=== PATIENT | female | born 1980 | race African-American/Black ===

== ENCOUNTER 2016-07-04 07:52 | Emergency (ER) | payer MEDICAID ==
[2016-07-04 07:58] VITALS: BP 120/79
[2016-07-04] MEDS ORDERED: LORATADINE 10 MG TABLET PO ONE (08:46)
[2016-07-04] MEDS ORDERED: IBUPROFEN 600 MG TABLET PO ONE (08:46)
[2016-07-04] MEDS ORDERED: PSEUDOEPHEDRINE HCL 30 MG TABLET PO ONE (08:46)
[2016-07-04] MEDS ORDERED: GUAIFENESIN 600 MG TABLET.SA PO ONE (08:46)
--- NOTE | 2016-07-04 08:46 | ER Document Report ---
ED ENT - General Chief Complaint: Sinus Congestion Stated Complaint: BODY PAIN Time seen by provider: 08:46 Mode of Arrival: Ambulatory Information source: Patient Notes: 36-year-old female presents to ED for congestion sneezing sinus pressure since yesterday with a little bit of a sore throat bodyaches and cough denies any fever. Beginning clear complete sentences no distress noted. TRAVEL OUTSIDE OF THE [place] IN LAST 30 DAYS: No - HPI Patient complains to provider of: Nose problem, Throat problem Onset: Yesterday Onset/Duration: Sudden Quality of pain: Achy Severity: Moderate Pain Level: 3 Location of pain: Nose, Sinus, Throat Associated symptoms: Cough, Runny nose, Sinus pain, Sinus drainage, Sore throat. 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 Lives with: Alone - Alone with children Family History: Arthritis, CAD, CVA, DM, Hyperlipidemia, Hypertension Patient has suicidal ideation: No Patient has homicidal ideation: No - Past Medical History Cardiac Medical History: Reports: None Pulmonary Medical History: Reports: Hx Asthma, Hx Pneumonia EENT Medical History: Reports: None Neurological Medical History: Reports: None Endocrine Medical History: Reports: None Renal/ Medical History: Reports: None Malignancy Medical History: Reports: None GI Medical History: Reports: None Musculoskeltal Medical History: Reports None Skin Medical History: Reports Hx Cellulitis Psychiatric Medical History: Reports: Hx Anxiety, Hx Depression Traumatic Medical History: Reports: None Infectious Medical History: Reports: None Past Surgical History: Reports: Hx Adenoidectomy, Hx Section - x4, Hx CholecystectomyComment Only: Hx Tonsillectomy - adnoids - Immunizations Hx Diphtheria, Pertussis, Tetanus Vaccination: Yes Review of Systems - Review of Systems Constitutional: Recent illness EENT: Nose discharge, Sinus discharge, Throat pain Cardiovascular: No symptoms reported Respiratory: Cough Gastrointestinal: No symptoms reported Genitourinary: No symptoms reported Female Genitourinary: No symptoms reported Musculoskeletal: No symptoms reported Skin: No symptoms reported Hematologic/Lymphatic: No symptoms reported Neurological/Psychological: No symptoms reported -: Yes All other systems reviewed and negative Physical Exam - Vital signs Vitals: Temp Pulse Resp BP Pulse Ox 98.2 F 97 20 120/79 98 07/04/16 07:57 07/04/16 07:57 07/04/16 07:57 07/04/16 07:57 07/04/16 07:57 Interpretation: Normal - General General appearance: Appears well, Alert - HEENT Head: Normocephalic, Atraumatic Eyes: Normal Pupils: PERRL Ears: Normal External canal: Normal Tympanic membrane: Normal Sinus: Normal Nasal: Purulent discharge, Swelling Mouth/Lips: Normal Mucous membranes: Normal Pharynx: Post nasal drainage. No: Erythema, Exudate, Peritonsillar abscess Neck: Normal - Respiratory Respiratory status: No respiratory distress Chest status: Nontender Breath sounds: Normal, Nonproductive cough Chest palpation: Normal - Cardiovascular Rhythm: Regular Heart sounds: Normal auscultation Murmur: No - Abdominal Inspection: Normal Distension: No distension Bowel sounds: Normal Tenderness: Nontender Organomegaly: No organomegaly - Back Back: Normal, Nontender - Extremities General upper extremity: Normal inspection, Nontender, Normal color, Normal ROM , Normal temperature General lower extremity: Normal inspection, Nontender, Normal color, Normal ROM , Normal temperature, Normal weight bearing. No: Everett's sign - Neurological Neuro grossly intact: Yes Cognition: Normal Orientation: AAOx4 [place] Coma Scale Eye Opening: Spontaneous Jennifer Coma Scale Verbal: Oriented [place] Coma Scale Motor: Obeys Commands Chester Coma Scale Total: 15 Speech: Normal Motor strength normal: LUE, RUE, LLE, RLE Sensory: Normal - Psychological Associated symptoms: Normal affect, Normal mood - Skin Skin Temperature: Warm Skin Moisture: Dry Skin Color: Normal Course - Re-evaluation Re-evalutation: 07/04/16 11:06 Assessment consistent with upper respiratory infection and patient requested a test for influenza. - Vital Signs Vital signs: Temp Pulse Resp BP Pulse Ox 98.2 F 97 20 120/79 98 07/04/16 07:57 07/04/16 07:57 07/04/16 07:57 07/04/16 07:57 07/04/16 07:57 Discharge - Discharge Clinical Impression: URI (upper respiratory infection) Qualifiers: URI type: unspecified URI Qualified Code(s): J06.9 - Acute upper respiratory infection, unspecified Condition: Stable Disposition: HOME, SELF-CARE Instructions: Family Physicians / Practices Additional Instructions: UPPER RESPIRATORY ILLNESS: You have a viral infection of the respiratory passages -- a "cold." This common infection causes nasal congestion, drainage, and often sore throat and cough. It is highly contagious. The disease usually lasts about 10 to 14 days. There is no "cure" for the viral infection -- it must run its course. If there is a complication, such as bacterial infection in the nose, sinuses, middle ear, or bronchial tubes, antibiotics may be required. The antibiotics won't affect the virus. Drink plenty of fluids. A humidifier may help. An expectorant medication or decongestant may make you more comfortable. Use acetaminophen or ibuprofen for fever or aches. See the doctor if fever persists over two days, if there is any significant worsening of your symptoms, or if you simply fail to improve as expected. DECONGESTANT MEDICATION: A decongestant medicine has been suggested. Often this medicine is combined in the same tablet with an antihistamine or expectorant. This type of medicine is helpful in treating a bad cold or sinus condition, as well as in treatment of the nasal congestion of hay fever. It is not of much benefit for lung infections. Decongestant medicines are related to stimulants. They can cause an increase in blood pressure and heart rate. Persons with heart disease and high blood pressure should not take decongestants without discussing this with the physician. If you develop palpitations, chest pain, headache, or tremors, stop the medicine and consult your physician. COUGH-SUPPRESSANT & EXPECTORANT MEDICATION: You are to use a cough medication as needed for relief of symptoms. This medicine is a combination of an expectorant (to make the mucous thinner and more easily "coughed up") and a cough suppressant (to reduce the frequency of coughing). The cough-suppressant medicine is related to narcotics. You may experience mild nausea and sleepiness. Some patients who are very sensitive to narcotics may have stomach pain from this medicine. Taking the medicine with food reduces these side effects. Do not drive or work with machinery until you know how this medicine affects you. The expectorant should have no side effects. Iodine-containing expectorants (such as organidin) should not be taken by persons with active thyroid disease unless approved by your doctor. Call the doctor if you develop shortness of breath, hives, rash, itching, lightheadedness, or severe nausea and vomiting. USE OF ACETAMINOPHEN (Tylenol): Acetaminophen may be taken for pain relief or fever control. It's much safer than aspirin, offering a wider range of "safe" dosages. It is safe during . Some brand names are Tylenol, Panadol, Datril, Anacin 3, Tempra, and Liquiprin. Acetaminophen can be repeated every four hours. The following are maximum recommended dosages: >89 pounds or adults 650 mg to 900 mg Acetaminophen can be repeated every four hours. Maximum dose not to exceed 4000 mg a day. SMOKING: If you smoke, you should stop smoking. The tar and chemicals in cigarette smoke are harmful. Smoking has been shown to cause: emphysema chronic bronchitis lung cancer mouth and throat cancer stomach and pancreas cancer premature aging defects In addition, smoking increases ear and lung infections in children of smokers. FOLLOW-UP CARE: If you have been referred to a physician for follow-up care, call the physician s office for an appointment as you were instructed or within the next two days. If you experience worsening or a significant change in your symptoms, notify the physician immediately or return to the Emergency Department at any time for re-evaluation. Forms: Return to Work, Follow-Up Laboratory Testing
== END 2016-07-04 09:13 | disposition home or self-care (01) ==
LOC: ER 07:52
DX: J06.9 Acute upper respiratory infection, unspecified (principal); M79.1 Myalgia; Z90.49 Acquired absence of other specified parts of digestive tract
CPT/HCPCS: 99283; J3490 ×3

== ENCOUNTER 2017-02-04 06:56 | Emergency (ER) | payer MEDICAID ==
[2017-02-04 08:15] LABS: APPEARANCE,URINE CLEAR; BILIRUBIN,URINE NEGATIVE (NEGATIVE); GLUCOSE, URINE NEGATIVE (NEGATIVE); KETONES,URINE NEGATIVE (NEGATIVE); LEUKOCYTE ESTERASE,URINE NEGATIVE (NEGATIVE); NITRITE,URINE NEGATIVE (NEGATIVE); PROTEIN,URINE NEGATIVE (NEGATIVE); URINE SPECIFIC GRAVITY 1.006; UROBILINOGEN,URINE NEGATIVE mg/dL (<2.0)
--- NOTE | 2017-02-04 08:21 | ER Document Report ---
ED ENT - General Chief Complaint: Sore Throat Stated Complaint: SORE THROAT, Time Seen by Provider: 02/04/17 07:16 Mode of Arrival: Ambulatory Information source: Patient Notes: Patient is a 36-year-old female who presents to the ER today for 1 day of sore throat and 1 day of dysuria with lower abdominal cramping. She denies any fever , chills, body aches, low back pain, vomiting or diarrhea. She states that she does have a new sexual partner as of 2 weeks ago but he has not told her that he has any STDs, however she is concerned about this today. She denies any abnormal vaginal discharge. She denies . TRAVEL OUTSIDE OF THE [place] IN LAST 30 DAYS: No - Related Data Allergies/Adverse Reactions: No Known Allergies Allergy (Verified 07/04/16 08:03) Past Medical History - General Information source: Patient - Social History Smoking Status: Never Smoker Chew tobacco use (# tins/day): No Frequency of alcohol use: None Drug Abuse: None Family History: Arthritis, CAD, CVA, DM, Hyperlipidemia, Hypertension Patient has suicidal ideation: No Patient has homicidal ideation: No Pulmonary Medical History: Reports: Hx Asthma, Hx Pneumonia Renal/ Medical History: Denies: Hx Peritoneal Dialysis Skin Medical History: Reports Hx Cellulitis Psychiatric Medical History: Reports: Hx Anxiety, Hx Depression Past Surgical History: Reports: Hx Adenoidectomy, Hx Section - x4, Hx CholecystectomyComment Only: Hx Tonsillectomy - adnoids - Immunizations Hx Diphtheria, Pertussis, Tetanus Vaccination: Yes Review of Systems - Review of Systems Constitutional: No symptoms reported EENT: See HPI Cardiovascular: No symptoms reported Respiratory: No symptoms reported Gastrointestinal: No symptoms reported Genitourinary: See HPI Female Genitourinary: No symptoms reported Musculoskeletal: No symptoms reported Skin: No symptoms reported Hematologic/Lymphatic: No symptoms reported Neurological/Psychological: No symptoms reported Physical Exam - Vital signs Vitals: Temp Pulse Resp BP Pulse Ox 98.1 F 76 18 120/82 98 02/04/17 07:03 02/04/17 07:03 02/04/17 07:03 02/04/17 07:03 02/04/17 07:03 - Notes Notes: PHYSICAL EXAMINATION: GENERAL: Well-appearing and in no acute distress. HEAD: Atraumatic, normocephalic. EYES: Pupils equal round and reactive to light, extraocular movements intact, sclera anicteric, conjunctiva are normal. ENT: ear canals without erythema or foreign body, TMs pearly ghosh with good bony landmarks, nares patent, oropharynx mildly erythematous without enlarged tonsils and without exudates. Moist mucous membranes. NECK: Normal range of motion, supple without lymphadenopathy LUNGS: CTAB and equal. No wheezes rales or rhonchi. HEART: Regular rate and rhythm without murmurs ABDOMEN: Soft, mild suprapubic tenderness. No guarding, no rebound BACK: no vertebral tenderness, normal ROM GI/: no CVA tenderness EXTREMITIES: Normal range of motion, no pitting edema. No cyanosis. NEUROLOGICAL: Cranial nerves grossly intact. Normal sensory/motor exams. PSYCH: Normal mood, normal affect. SKIN: Warm, Dry, normal turgor, no rashes or lesions noted Course - Re-evaluation Re-evalutation: 02/04/17 08:25 I offered patient a pelvic exam but she opted for the chlamydia and gonorrhea that can be tested in the urine. Urinalysis, chlamydia, gonorrhea urine all pending at this time the patient would like to go home because she has to "be at the [employer] in half an hour." Strep was negative today and I did advise her of this. - Vital Signs Vital signs: Temp Pulse Resp BP Pulse Ox 98.1 F 76 18 120/82 98 02/04/17 07:03 02/04/17 07:03 02/04/17 07:03 02/04/17 07:03 02/04/17 07:03 Discharge - Discharge Clinical Impression: Sore throat, Dysuria Condition: Stable Disposition: HOME, SELF-CARE Additional Instructions: Return immediately for any new or worsening symptoms. Follow up with primary care provider, call tomorrow to make followup appointment. Forms: Return to Work Referrals: COURTNEY ANDRADE, [Primary Care Provider] - Follow up as needed
[2017-02-04 08:24] VITALS: BP 123/75
[2017-02-04 10:03] LABS: CHLAM PCR NOT DETECTED (NOT DETECT)
== END 2017-02-04 08:23 | disposition home or self-care (01) ==
LOC: ER 06:56
DX: J02.9 Acute pharyngitis, unspecified (principal); R30.0 Dysuria; R10.30 Lower abdominal pain, unspecified; J45.909 Unspecified asthma, uncomplicated
CPT/HCPCS: 81001; 81025; 87070; 87491; 87591; 87880; 99283

== ENCOUNTER 2017-05-22 07:15 | Emergency (ER) | payer MEDICAID ==
[2017-05-22 08:13] VITALS: BP 101/65
--- NOTE | 2017-05-22 08:16 | ER Document Report ---
HPI - HPI Patient complains to provider of: blister and red rash abdomen Onset: This morning Pain Level: 4 Context: 37 yo female woke up with blister and erythema on left abdomen this morning. Thinks it is cellulitis again. No fever, no hx MRSA. I asked if she used a heating pad since it looked like the pattern you get from heating pad, ? burn. Associated Symptoms: None Exacerbated by: Denies Relieved by: Denies Similar symptoms previously: Yes Recently seen / treated by doctor: No Notes: LMP 12-16-17 - ROS ROS below otherwise negative: Yes Systems Reviewed and Negative: Yes All other systems reviewed and negative - REPRODUCTIVE Reproductive: DENIES: : Past Medical History - General Information source: Patient - Social History Smoking Status: Never Smoker Frequency of alcohol use: None Drug Abuse: None Lives with: Family Family History: Arthritis, CAD, CVA, DM, Hyperlipidemia, Hypertension Pulmonary Medical History: Reports: Hx Asthma, Hx Pneumonia Renal/ Medical History: Denies: Hx Peritoneal Dialysis Skin Medical History: Reports Hx Cellulitis Psychiatric Medical History: Reports: Hx Anxiety, Hx Depression Past Surgical History: Reports: Hx Adenoidectomy, Hx Section - x4, Hx CholecystectomyComment Only: Hx Tonsillectomy - adnoids - Immunizations Hx Diphtheria, Pertussis, Tetanus Vaccination: Yes Vertical Provider Document - CONSTITUTIONAL Agree With Documented VS: Yes Exam Limitations: No Limitations General Appearance: No Apparent Distress - INFECTION CONTROL TRAVEL OUTSIDE OF THE [place] IN LAST 30 DAYS: No - HEENT HEENT: Normocephalic - NECK Neck: Supple - RESPIRATORY Respiratory: Breath Sounds Normal, No Respiratory Distress - CARDIOVASCULAR Cardiovascular: Regular Rate, Regular Rhythm - GI/ABDOMEN Gastrointestinal: Abdomen Soft, Abdomen Non-Tender Notes: 2 approx. 8 mm vesicles with nikolai red rash regular pattern surroundingleft just below umbilicus - MUSCULOSKELETAL/EXTREMETIES Musculoskeletal/Extremeties: SANDRA, MAL - NEURO Level of Consciousness: Awake, Alert, Appropriate - DERM Integumentary: Rash - see above Discharge - Discharge Clinical Impression: VESICLES ABDOMEN Condition: Good Disposition: HOME, SELF-CARE Instructions: Antibiotic Ointment Protection ([facility]), Cephalexin ([facility]) Additional Instructions: bacitracin and keep covered keflex wound and viral culture are pending to er if worse Prescriptions: Cephalexin Monohydrate [Keflex 500 mg Capsule] 500 mg PO QID #28 capsule Forms: Parent Work Note
== END 2017-05-22 08:47 | disposition home or self-care (01) ==
LOC: ER 07:15
DX: R23.8 Other skin changes (principal); J45.909 Unspecified asthma, uncomplicated
CPT/HCPCS: 87070; 87205; 87252; 99282

== ENCOUNTER → 2018-02-05 | Outpatient (CLI) | payer MEDICAID ==
--- NOTE | 2018-02-05 11:01 | RADIOLOGY REPORT (SQ) ---
EXAM DESCRIPTION: CT ABD/PELVIS NO ORAL OR IV COMPLETED DATE/TIME: 02/05/2018 10:48 am REASON FOR STUDY: NEPHROPTOSIS N28.83 NEPHROPTOSIS bilateral flank pain COMPARISON: Abdomen films 12/02/2015 Renal ultrasound 05/24/2015, 04/14/2008 TECHNIQUE: CT scan of the abdomen and pelvis performed without intravenous or oral contrast. Images reviewed with lung, soft tissue, and bone windows. Reconstructed coronal and sagittal MPR images revi ewed. All images stored on PACS. All CT scanners at this facility use dose modulation, iterative reconstruction, and/or weight based d osing when appropriate to reduce radiation dose to as low as reasonably achievable (ALARA). [facility]: Dose Right [facility]: CareDose [facility]: Dose Right [facility]: Teradose 4D [facility]: HedgeCo RADIATION DOSE: 30.1mGy. LIMITATIONS: None. FINDINGS: LOWER CHEST: No significant findings. No nodules or infiltrates. NON-CONTRASTED LIVER, SPLEEN, ADRENALS: Evaluation limited by lack of IV contrast. Diffuse fatty inf iltration of the liver. No identified significant masses. PANCREAS: No masses. No peripancreatic inflammatory changes. GALLBLADDER: Surgically absent RIGHT KIDNEY AND URETER: No suspicious masses. Assessment limited by lack of IV contrast. No signif icant calcifications. No hydronephrosis or hydroureter. LEFT KIDNEY AND URETER: No suspicious masses. Assessment limited by lack of IV contrast. No signifi cant calcifications. No hydronephrosis or hydroureter. AORTA AND RETROPERITONEUM: No aneurysm. No retroperitoneal masses or adenopathy. BOWEL AND PERITONEAL CAVITY: No obvious masses or inflammatory changes. No free fluid. Large amount of stool throughout the colon APPENDIX: Normal. PELVIS, BLADDER, AND ABDOMINAL WALL:No abnormal masses. No free fluid. Bladder normal. BONES: No significant findings. OTHER: No other significant finding. IMPRESSION: Fatty liver. Post cholecystectomy. Large amount of stool in the colon No nephrolithiasis COMMENT: Quality ID # [id number]: Final reports with documentation of one or more dose reduction techniques (e.g., Automated exposure control, adjustment of the mA and/or kV according to patient size, use of iterative reconstruction technique) TECHNICAL DOCUMENTATION: JOB ID: [id number] [employer]- All Rights Reserved Reading location - IP/workstation name: [facility]
== END ==
LOC: RAD 10:17
PROVIDERS: ATTEND Student in an Organized Health Care Education/Training Program
DX: N28.83 Nephroptosis (principal)
CPT/HCPCS: 74176

== ENCOUNTER 2018-02-16 08:42 | Emergency (ER) | payer MEDICAID ==
[2018-02-16 08:51] VITALS: BP 118/80
[2018-02-16] MEDS ORDERED: HYDROCODONE/ACETAMINOPHEN 5-325 MG (6 TAB/ER DISP) PO PRN (09:19)
--- NOTE | 2018-02-16 09:24 | ER Document Report ---
HPI - HPI Pain Level: 4 Notes: Patient is a 37-year-old female who presents to the emergency department complaining of right lower dental pain that started on . Patient reports the pain is around tooth #20 and 19. Patient denies seeing a dentist for same. - REPRODUCTIVE Reproductive: DENIES: : Past Medical History - General Information source: Patient - Social History Smoking Status: Never Smoker Drug Abuse: None Lives with: Alone Family History: Arthritis, CAD, CVA, DM, Hyperlipidemia, Hypertension Pulmonary Medical History: Reports: Hx Asthma, Hx Pneumonia Renal/ Medical History: Denies: Hx Peritoneal Dialysis Skin Medical History: Reports Hx Cellulitis Psychiatric Medical History: Reports: Hx Anxiety, Hx Depression Past Surgical History: Reports: Hx Adenoidectomy, Hx Section - x4, Hx CholecystectomyComment Only: Hx Tonsillectomy - adnoids - Immunizations Hx Diphtheria, Pertussis, Tetanus Vaccination: Yes Vertical Provider Document - CONSTITUTIONAL Notes: PHYSICAL EXAMINATION: GENERAL: Well-appearing, well-nourished and in no acute distress. HEAD: Atraumatic, normocephalic. EYES: Pupils equal round extraocular movements intact, conjunctiva are normal. ENT: Nares patent, erythema noted around tooth #19. No drainable abscess identified. NECK: Normal range of motion LUNGS: No respiratory distress Musculoskeletal: Normal range of motion NEUROLOGICAL: Normal speech, normal gait. PSYCH: Normal mood, normal affect. SKIN: Warm, Dry, normal turgor, no rashes or lesions noted. - INFECTION CONTROL TRAVEL OUTSIDE OF THE [place] IN LAST 30 DAYS: No Course - Re-evaluation Re-evalutation: Examination consistent with dental infection. No drainable abscess identified. Patient will be placed on penicillin VK and discharged home in stable condition. Patient instructed to follow-up with dentist. - Vital Signs Vital signs: Temp Pulse Resp BP Pulse Ox 98.2 F 70 118/80 97 02/16/18 08:48 02/16/18 08:48 02/16/18 08:48 02/16/18 08:48 Discharge - Discharge Clinical Impression: Dental infection Condition: Stable Disposition: HOME, SELF-CARE Additional Instructions: TOOTHACHE: Your pain is due to dental decay. The tooth must be repaired in order for you to feel better. You will, therefore, be referred to a dentist. We do not have dentists on the staff at [facility]. Severe swelling or drainage around a tooth usually means a dental abscess. This also requires evaluation and treatment by the dentist, but antibiotics may be prescribed while awaiting dental treatment. You should be rechecked immediately if you develop major swelling of the face, increasing pain, a lump in the jaw or gums, headache, difficulty swallowing, or fever. ORAL NARCOTIC MEDICATION: You have been given a prescription for pain control. This medication is a narcotic. It's best taken with food, as nausea can result if taken on an empty stomach. Don't operate machinery or drive within six hours of taking this medication. Do not combine this medicine with alcohol, or with any medication which can cause sedation (such as cold tablets or sleeping pills) unless you get permission from the physician. Narcotics tend to cause constipation. If possible, drink plenty of fluids and eat a diet high in fiber and fruits. Please be aware that prescription narcotics also have the potential for abuse. People become addicted to these medications because of the general sense of wellbeing that they induce. This feeling along with a significant reduction in tension, anxiety, and aggression provides a stimulating seductive quality to these drugs. Once your pain is under control, we encourage you to discard your unused narcotics. FOLLOW-UP CARE: You have been referred for follow-up care to the dentists listed below. Call the dentists office for an appointment as you were instructed or within the next two days. If you experience worsening or a significant change in your symptoms, notify the physician immediately or return to the Emergency Department at any time for re-evaluation. [facility] [address] Prescriptions: Cephalexin [Cephalexin 500 MG Capsule] 1 cap PO QID #28 cap Referrals: COURTNEY ANDRADE, [NO LOCAL MD] - Follow up as needed
== END 2018-02-16 09:35 | disposition home or self-care (01) ==
LOC: ER 08:42
DX: K04.7 Periapical abscess without sinus (principal); K08.89 Other specified disorders of teeth and supporting structures; J45.909 Unspecified asthma, uncomplicated
CPT/HCPCS: 99282

== ENCOUNTER 2018-09-06 07:29 | Emergency (ER) | payer MEDICAID, OTHER ==
[2018-09-06 07:37] VITALS: BP 127/84
--- NOTE | 2018-09-06 08:31 | ER Document Report ---
ED General - General Chief Complaint: Diarrhea Stated Complaint: DIARRHEA Time Seen by Provider: 09/06/18 08:14 TRAVEL OUTSIDE OF THE [place] IN LAST 30 DAYS: No - HPI Notes: Patient is a 38-year-old female that presents to the emergency department for chief complaint of frequent bowel movements and anal pain. Patient reports 1-2 bowel movements daily for the past 2 to 3 weeks. She states sometimes it is hard and she is having to push and occasionally it is diarrhea. She states over the last for 5 days she started to have anal pain and noticed some swelling around her anus. She denies history of hemorrhoids in the past. She did put some A&E ointment on her anus which gave her some symptomatic improvement. She denies any black or bloody stools but does state that she has had some bright red blood on the toilet paper. She denies any associated fever, chills, abdominal pain, nausea or vomiting. Patient states that she does have a family history of colon cancer and had a normal colonoscopy 1 year ago. Past Medical History: Anxiety Past Surgical History: Colonoscopy Social History: Denies drugs alcohol and tobacco Family History: Family history of colon cancer Allergies: Reviewed, see documented allergy list. REVIEW OF SYSTEMS: CONSTITUTIONAL : No fever No chills No diaphoresis No recent illness EENT: No vision changes No congestion No sore throat CARDIOVASCULAR: No chest pain No palpitations RESPIRATORY: No shortness of breath No cough No difficulty breathing GASTROINTESTINAL: No abdominal pain No nausea No vomiting diarrhea Constipation Anal pain GENITOURINARY: No dysuria No hematuria No difficulty urinating MUSCULOSKELETAL: No back pain No leg pain No arm pain SKIN: No rashes No lesions LYMPHATIC: No swollen, enlarged glands. NEUROLOGICAL: No lightheadedness No headache No weakness No paresthesias PSYCHIATRIC: No anxiety No depression PHYSICAL EXAMINATION: Vital signs reviewed, nursing noted reviewed. GENERAL: Well-appearing, well-nourished and in no acute distress. HEAD: Atraumatic, normocephalic. EYES: Eyes appear normal, extraocular movements intact, sclera anicteric, conjunctiva are normal. ENT: nares patent, oropharynx clear without exudates. Moist mucous membranes. NECK: Normal range of motion, supple without lymphadenopathy LUNGS: Breath sounds clear to auscultation bilaterally and equal. No wheezes rales or rhonchi. HEART: Regular rate and rhythm without murmurs ABDOMEN: Soft, nontender, normoactive bowel sounds. No rebound, guarding, or rigidity. No masses appreciated. : Normal anal tone, no anal fissures, 2 small nonthrombosed and nonbleeding external hemorrhoids EXTREMITIES: Nontender, good range of motion, no pitting or edema. NEUROLOGICAL: No focal neurological deficits. Moves all extremities spontaneously Motor and sensory grossly intact on exam. PSYCH: Normal mood, normal affect. SKIN: Warm, Dry, normal turgor, no rashes or lesions noted on exposed skin - Related Data Allergies/Adverse Reactions: No Known Allergies Allergy (Verified 09/06/18 07:35) Past Medical History - Social History Smoking Status: Never Smoker Chew tobacco use (# tins/day): No Frequency of alcohol use: Rare Drug Abuse: None Family History: Arthritis, CAD, CVA, DM, Hyperlipidemia, Hypertension Patient has suicidal ideation: No Patient has homicidal ideation: No Pulmonary Medical History: Reports: Hx Asthma, Hx Pneumonia Renal/ Medical History: Denies: Hx Peritoneal Dialysis Skin Medical History: Reports Hx Cellulitis Psychiatric Medical History: Reports: Hx Anxiety, Hx Depression Past Surgical History: Reports: Hx Adenoidectomy, Hx Section - x4, Hx CholecystectomyComment Only: Hx Tonsillectomy - adnoids - Immunizations Hx Diphtheria, Pertussis, Tetanus Vaccination: Yes Physical Exam - Vital signs Vitals: Temp Pulse Resp BP Pulse Ox 98.2 F 66 16 127/84 H 98 09/06/18 07:36 09/06/18 07:36 09/06/18 07:36 09/06/18 07:36 09/06/18 07:36 Course - Re-evaluation Re-evalutation: 09/06/18 08:30 Vitals reviewed. Nursing notes reviewed. Stool culture was obtained. Patient also has a history of C. difficile and C. difficile titers were obtained today 2. She has not had any fevers or copious amounts of runny diarrhea and I have very low suspicion for C. difficile infection. Patient has had digestive issues including constipation and diarrhea. She will be referred to GI for follow-up. Patient counseled on hemorrhoid management. She is stable at discharge. - Vital Signs Vital signs: Temp Pulse Resp BP Pulse Ox 98.2 F 66 16 127/84 H 98 09/06/18 07:36 09/06/18 07:36 09/06/18 07:36 09/06/18 07:36 09/06/18 07:36 Discharge - Discharge Clinical Impression: External hemorrhoids Diarrhea Qualifiers: Diarrhea type: unspecified type Qualified Code(s): R19.7 - Diarrhea, unspecified Condition: Stable Disposition: HOME, SELF-CARE Instructions: Hemorrhoids ([facility]), Diarrhea, Nonspecific ([facility]) Additional Instructions: Please return to the emergency department if you have any worsening, or concern of your symptoms. Please return to the emergency department if you develop chest pain, difficulty breathing, severe abdominal pain, or ongoing vomiting. Please follow-up with your primary care physician in 2-3 days and any other recommended physicians. If prescribed, take all medications as directed. If you have any questions or concerns do not hesitate to return the emergency department for evaluation. [] Referrals: ESTELLA PITTMAN MD [ACTIVE STAFF] - Follow up in 3-5 days
== END 2018-09-06 08:36 | disposition home or self-care (01) ==
LOC: ER 07:29
DX: K64.4 Residual hemorrhoidal skin tags (principal); R19.7 Diarrhea, unspecified; K62.89 Other specified diseases of anus and rectum
CPT/HCPCS: 87045; 87205; 87493; 99284

== ENCOUNTER 2018-10-04 05:19 | Emergency (ER) | payer OTHER ==
[2018-10-04 07:04] LABS: ABSOLUTE BASOPHILS # (AUTO) 0.1 10^3/uL (0.0-0.2); ABSOLUTE EOSINOPHILS # (AUTO) 0.1 10^3/uL (0.0-0.6); ABSOLUTE LYMPHOCYTES (AUTO) 2.9 10^3/uL (0.5-4.7); ABSOLUTE MONOCYTES (AUTO) 0.5 10^3/uL (0.1-1.4); ABSOLUTE NEUT (AUTO) 3.7 10^3/uL (1.7-8.2); HEMATOCRIT 40.9 % (36.0-47.0); HEMOGLOBIN 13.8 g/dL (12.0-15.5); MEAN CORPUSCULAR HEMOGLOBIN 30.6 pg (27.0-33.4); MEAN CORPUSCULAR HGB CONC 33.6 g/dL (32.0-36.0); MEAN CORPUSCULAR VOLUME 91 fl (80-97); MONOCYTES % (AUTO) 6.6 % (3-13); PLATELET COUNT 287 10^3/uL (150-450); RED CELL DISTRIBUTION WIDTH 13.2 % (11.5-14.0); SEGMENTED NEUTROPHILS % (AUTO) 51.4 % (42-78); TOTAL CELLS COUNTED % (AUTO) 100 %; WHITE BLOOD COUNT 7.2 10^3/uL (4.0-10.5)
[2018-10-04 07:10] LABS: APPEARANCE,URINE CLOUDY; BILIRUBIN,URINE NEGATIVE (NEGATIVE); COLOR,URINE YELLOW; GLUCOSE, URINE NEGATIVE (NEGATIVE); KETONES,URINE NEGATIVE (NEGATIVE); LEUKOCYTE ESTERASE,URINE TRACE (NEGATIVE); NITRITE,URINE NEGATIVE (NEGATIVE); PROTEIN,URINE NEGATIVE (NEGATIVE); URINE SPECIFIC GRAVITY 1.013; UROBILINOGEN,URINE NEGATIVE mg/dL (<2.0)
[2018-10-04 07:21] LABS: ALANINE AMINOTRANSFERASE 40 U/L (9-52); ALBUMIN 4.2 g/dL (3.5-5.0); ALKALINE PHOSPHATASE 74 U/L (38-126); ANION GAP 8 (5-19); ASPARTATE AMINO TRANSFERASE 27 U/L (14-36); BILIRUBIN,DIRECT 0.3 mg/dL (0.0-0.4); BILIRUBIN,TOTAL 0.4 mg/dL (0.2-1.3); BLOOD UREA NITROGEN 10 mg/dL (7-20); CALCIUM 9.7 mg/dL (8.4-10.2); CARBON DIOXIDE 29 mmol/L (22-30); CHLORIDE 105 mmol/L (98-107); GLUCOSE 94 mg/dL (75-110); POTASSIUM 4.8 mmol/L (3.6-5.0); SODIUM 141.6 mmol/L (137-145); TOTAL PROTEIN 7.5 g/dL (6.3-8.2)
--- NOTE | 2018-10-04 07:31 | ER Document Report ---
ED General - General Chief Complaint: Diarrhea Stated Complaint: STOMACH PAIN/DIARRHEA Time Seen by Provider: 10/04/18 07:20 Primary Care Provider: COURTNEY ANDRADE DO [Primary Care Provider] - Follow up as needed TRAVEL OUTSIDE OF THE [place] IN LAST 30 DAYS: No - HPI Notes: Patient is a 38-year-old female that presents to the emergency department for chief complaint of diarrhea. Patient reports over the last 4 to 5 days she has had frequent diarrhea. She reports about 10 episodes daily. She denies any associated nausea, vomiting, or blood in the stool. She finished a course of vancomycin for C. difficile colitis about 2 weeks ago. She states that her stool had been more formed and the diarrhea had resolved until the last 4 to 5 days. She was not retested to confirm resolution of her C. difficile colitis. 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 She states she did drink some water from a fountain that tasted like it may have been bad. She denies any current antibiotics. She does report she has felt a low-grade fever over the last few days as well and her T-max at home was 99.0. Patient states occasionally she will have a crampy abdominal pain that is diffuse with no aggravating or relieving factors. Currently she is not having any pain. Past Medical History: Anxiety Past Surgical History: Colonoscopy Social History: Denies drugs alcohol and tobacco Family History: Family history of colon cancer Allergies: Reviewed, see documented allergy list. REVIEW OF SYSTEMS: CONSTITUTIONAL : fever No chills No diaphoresis No recent illness EENT: No vision changes No congestion No sore throat CARDIOVASCULAR: No chest pain No palpitations RESPIRATORY: No shortness of breath No cough No difficulty breathing GASTROINTESTINAL: abdominal pain No nausea No vomiting diarrhea GENITOURINARY: No dysuria No hematuria No difficulty urinating MUSCULOSKELETAL: No back pain No leg pain No arm pain SKIN: No rashes No lesions LYMPHATIC: No swollen, enlarged glands. NEUROLOGICAL: No lightheadedness No headache No weakness No paresthesias PSYCHIATRIC: No anxiety No depression PHYSICAL EXAMINATION: Vital signs reviewed, nursing noted reviewed. GENERAL: Well-appearing, well-nourished and in no acute distress. HEAD: Atraumatic, normocephalic. EYES: Eyes appear normal, extraocular movements intact, sclera anicteric, conjunctiva are normal. ENT: nares patent, oropharynx clear without exudates. Moist mucous membranes. NECK: Normal range of motion, supple without lymphadenopathy LUNGS: Breath sounds clear to auscultation bilaterally and equal. No wheezes rales or rhonchi. HEART: Regular rate and rhythm without murmurs ABDOMEN: Soft, nontender, normoactive bowel sounds. No rebound, guarding, or rigidity. No masses appreciated. EXTREMITIES: Nontender, good range of motion, no pitting or edema. NEUROLOGICAL: No focal neurological deficits. Moves all extremities spontaneously Motor and sensory grossly intact on exam. PSYCH: Normal mood, normal affect. SKIN: Warm, Dry, normal turgor, no rashes or lesions noted on exposed skin - Related Data Allergies/Adverse Reactions: No Known Allergies Allergy (Verified 09/06/18 07:35) Past Medical History - Social History Smoking Status: Never Smoker Family History: Arthritis, CAD, CVA, DM, Hyperlipidemia, Hypertension Pulmonary Medical History: Reports: Hx Asthma, Hx Pneumonia Renal/ Medical History: Denies: Hx Peritoneal Dialysis Skin Medical History: Reports Hx Cellulitis Psychiatric Medical History: Reports: Hx Anxiety, Hx Depression Past Surgical History: Reports: Hx Adenoidectomy, Hx Section - x4, Hx CholecystectomyComment Only: Hx Tonsillectomy - adnoids - Immunizations Hx Diphtheria, Pertussis, Tetanus Vaccination: Yes Physical Exam - Vital signs Vitals: Temp Pulse Resp BP Pulse Ox 98.3 F 73 20 117/79 96 10/04/18 05:23 10/04/18 05:23 10/04/18 05:23 10/04/18 05:23 10/04/18 05:23 Course - Re-evaluation Re-evalutation: 10/04/18 07:30 Vitals reviewed. Nursing notes reviewed. Patient is well-appearing and in no acute distress. Currently she is denying any pain. She was able to provide a stool sample which will be tested for C. difficile as well as ova and parasites and cultured. She currently has no leukocytosis. Patient has normal renal function with no apparent dehydration or electrolyte abnormality. Urinalysis is also negative for infection or . Laboratory 10/04/18 10/04/18 10/04/18 06:32 06:55 06:55 WBC 7.2 RBC 4.50 Hgb 13.8 Hct 40.9 MCV 91 MCH 30.6 MCHC 33.6 RDW 13.2 Plt Count 287 Seg Neutrophils % 51.4 Lymphocytes % 40.0 Monocytes % 6.6 Eosinophils % 1.0 Basophils % 1.0 Absolute Neutrophils 3.7 Absolute Lymphocytes 2.9 Absolute Monocytes 0.5 Absolute Eosinophils 0.1 Absolute Basophils 0.1 Sodium 141.6 Potassium 4.8 Chloride 105 Carbon Dioxide 29 Anion Gap 8 BUN 10 Creatinine 0.81 Est GFR ( Amer) > 60 Est GFR (Non-Af Amer) > 60 Glucose 94 Calcium 9.7 Total Bilirubin 0.4 Direct Bilirubin 0.3 Neonat Total Bilirubin Not Reportable Neonat Direct Bilirubin Not Reportable Neonat Indirect Bili Not Reportable AST 27 ALT 40 Alkaline Phosphatase 74 Total Protein 7.5 Albumin 4.2 Urine Color YELLOW Urine Appearance CLOUDY Urine pH 7.0 Ur Specific [place] 1.013 Urine Protein NEGATIVE Urine Glucose (UA) NEGATIVE Urine Ketones NEGATIVE Urine Blood NEGATIVE Urine Nitrite NEGATIVE Urine Bilirubin NEGATIVE Urine Urobilinogen NEGATIVE Ur Leukocyte Esterase TRACE H Urine WBC (Auto) 12 Urine RBC (Auto) 5 Urine Bacteria (Auto) TRACE Squamous Epi Cells Auto 27 Urine Mucus (Auto) OCC Urine Ascorbic Acid NEGATIVE Urine HCG, Qual NEGATIVE 10/04/18 09:12 C. difficile is negative today. Stool culture ova and parasite are still pending. Patient was counseled on staying well-hydrated as well as return precautions. She will follow with her primary care doctor for reevaluation. She will be contacted with culture results if positive - Vital Signs Vital signs: Temp Pulse Resp BP Pulse Ox 98.3 F 73 20 117/79 96 10/04/18 05:23 10/04/18 05:23 10/04/18 05:23 10/04/18 05:23 10/04/18 05:23 - Laboratory Result Diagrams: 10/04/18 06:55 10/04/18 06:55 Laboratory results interpreted by me: 10/04/18 06:32 Ur Leukocyte Esterase TRACE H Discharge - Discharge Clinical Impression: Diarrhea Qualifiers: Diarrhea type: unspecified type Qualified Code(s): R19.7 - Diarrhea, un specified Condition: Stable Disposition: HOME, SELF-CARE Instructions: Diarrhea, Nonspecific ([facility]) Additional Instructions: Please return to the emergency department if you have any worsening, or concern of your symptoms. Please return to the emergency department if you develop chest pain, difficulty breathing, severe abdominal pain, or ongoing vomiting. Please follow-up with your primary care physician in 2-3 days and any other recommended physicians. If prescribed, take all medications as directed. If you have any questions or concerns do not hesitate to return the emergency department for evaluation. [] Referrals: COURTNEY ANDRADE, [Primary Care Provider] - Follow up in 3-5 days
[2018-10-04 09:43] VITALS: BP 122/83
== END 2018-10-04 09:43 | disposition home or self-care (01) ==
LOC: ER 05:19
DX: R19.7 Diarrhea, unspecified (principal); R10.9 Unspecified abdominal pain
CPT/HCPCS: 36415; 80053; 81001; 81025; 85025; 87045; 87177; 87205; 87493; 99284

== ENCOUNTER → 2018-11-13 | Outpatient (CLI) | payer OTHER ==
[2018-11-13 09:24] LABS: ABSOLUTE EOSINOPHILS # (AUTO) 0.1 10^3/uL (0.0-0.6); ABSOLUTE LYMPHOCYTES (AUTO) 3.5 10^3/uL (0.5-4.7); ABSOLUTE MONOCYTES (AUTO) 0.5 10^3/uL (0.1-1.4); ABSOLUTE NEUT (AUTO) 4.5 10^3/uL (1.7-8.2); BASOPHILS % (AUTO) 0.4 % (0-2); EOSINOPHILS % (AUTO) 1.4 % (0-6); LYMPHOCYTES % (AUTO) 40.2 % (13-45); MEAN CORPUSCULAR HEMOGLOBIN 29.7 pg (27.0-33.4); MEAN CORPUSCULAR HGB CONC 32.6 g/dL (32.0-36.0); MEAN CORPUSCULAR VOLUME 91 fl (80-97); MONOCYTES % (AUTO) 5.6 % (3-13); PLATELET COUNT 242 10^3/uL (150-450); RED BLOOD COUNT 4.72 10^6/uL (3.72-5.28); SEGMENTED NEUTROPHILS % (AUTO) 52.4 % (42-78); TOTAL CELLS COUNTED % (AUTO) 100 %; WHITE BLOOD COUNT 8.6 10^3/uL (4.0-10.5)
[2018-11-13 09:46] LABS: ALANINE AMINOTRANSFERASE 32 U/L (9-52); ALBUMIN 4.1 g/dL (3.5-5.0); ALKALINE PHOSPHATASE 74 U/L (38-126); ANION GAP 8 (5-19); ASPARTATE AMINO TRANSFERASE 22 U/L (14-36); BILIRUBIN,DIRECT 0.1 mg/dL (0.0-0.4); BILIRUBIN,TOTAL 0.2 mg/dL (0.2-1.3); BLOOD UREA NITROGEN 10 mg/dL (7-20); CALCIUM 9.5 mg/dL (8.4-10.2); CARBON DIOXIDE 27 mmol/L (22-30); CHLORIDE 103 mmol/L (98-107); CHOLESTEROL 178.06 mg/dL (0-200); GLUCOSE 86 mg/dL (75-110); POTASSIUM 4.3 mmol/L (3.6-5.0); TOTAL PROTEIN 7.2 g/dL (6.3-8.2); TRIGLYCERIDES 107 mg/dL (<150)
[2018-11-13 09:57] LABS: DIRECT LDL 105 mg/dL (<100)
[2018-11-13 10:04] LABS: FREE T3 3.8 pg/mL (2.77-5.27); FREE T4 (FREE THYROXINE) 0.83 ng/dL (0.78-2.19)
[2018-11-13 10:17] LABS: THYROID STIMULATING HORMONE 2.2 uIU/mL (0.47-4.68)
[2018-11-14 16:05] LABS: DEHYDROEPIANDROSTERONE SULFATE 114.3 ug/dL (57.3-279.2); ESTRONE SERUM 188 pg/mL (.)
[2018-11-15 18:21] LABS: REVERSE T3 18.1 ng/dL (9.2-24.1); TESTOSTERONE FREE (DIRECT) 4.6 pg/mL (0.0-4.2)
== END ==
LOC: OD 08:20
PROVIDERS: ATTEND Student in an Organized Health Care Education/Training Program
DX: E34.50 Androgen insensitivity syndrome, unspecified (principal); Z13.220 Encounter for screening for lipoid disorders
CPT/HCPCS: 36415; 80053; 80061; 82627; 82670; 82679; 83001; 83002; 84144; 84146; 84270; 84402; 84403; 84439; 84443; 84480; 84481; 84482; 85025

== ENCOUNTER 2018-12-25 19:53 | Emergency (ER) | payer OTHER ==
[2018-12-25] MEDS ORDERED: NORMAL SALINE 1000 ML 1,000 ML IV ONE (20:49)
[2018-12-25] MEDS ORDERED: PROCHLORPERAZINE EDISYLATE INJ 10 MG/2 ML VIAL IV ONE (20:49)
[2018-12-25] MEDS ORDERED: DIPHENHYDRAMINE HCL 50 MG/ML VIAL IV ONE (20:49)
--- NOTE | 2018-12-25 20:50 | ER Document Report ---
ED Medical Screen (RME) - General Chief Complaint: Headache Stated Complaint: HEADACHE Time Seen by Provider: 12/25/18 20:49 Primary Care Provider: COURTNEY ANDRADE DO [Primary Care Provider] - Follow up as needed Notes: Patient presents complaining of right sided headache pain that started yesterday after a panic attack. Patient denies any nausea or vomiting at this time. Patient states headache pain feels like a migraine. I have greeted and performed a rapid initial assessment of this patient. A comprehensive ED assessment and evaluation of the patient, analysis of test results and completion of the medical decision making process will be conducted by additional ED providers. TRAVEL OUTSIDE OF THE [place] IN LAST 30 DAYS: No - Related Data Allergies/Adverse Reactions: No Known Allergies Allergy (Verified 09/06/18 07:35) Past Medical History Pulmonary Medical History: Reports: Hx Asthma, Hx Pneumonia Renal/ Medical History: Denies: Hx Peritoneal Dialysis Skin Medical History: Reports Hx Cellulitis Psychiatric Medical History: Reports: Hx Anxiety, Hx Depression Past Surgical History: Reports: Hx Adenoidectomy, Hx Section - x4, Hx CholecystectomyComment Only: Hx Tonsillectomy - adnoids - Immunizations Hx Diphtheria, Pertussis, Tetanus Vaccination: Yes Physical Exam - Vital signs Vitals: Temp Pulse Resp BP Pulse Ox 97.9 F 142 H 18 126/84 H 93 12/25/18 19:57 12/25/18 19:57 12/25/18 19:57 12/25/18 19:57 12/25/18 19:57 Interpretation: No: Tachycardic Notes: Heart rate 64 - Neurological Neuro grossly intact: Yes Cognition: Normal [place] Coma Scale Eye Opening: Spontaneous Jennifer Coma Scale Verbal: Oriented [place] Coma Scale Motor: Obeys Commands [place] Coma Scale Total: 15 Course - Vital Signs Vital signs: Temp Pulse Resp BP Pulse Ox 97.9 F 142 H 18 126/84 H 93 12/25/18 19:57 12/25/18 19:57 12/25/18 19:57 12/25/18 19:57 12/25/18 19:57 Doctor's Discharge - Discharge Referrals: COURTNEY ANDRADE DO [Primary Care Provider] - Follow up as needed
[2018-12-25] MEDS ORDERED: DIPHENHYDRAMINE HCL 50 MG/ML VIAL ONE (23:38)
[2018-12-25] MEDS ORDERED: PROCHLORPERAZINE EDISYLATE INJ 10 MG/2 ML VIAL ONE (23:38)
[2018-12-26] MEDS ORDERED: DIAZEPAM INJ 10 MG/2 ML DISP.SYRIN IV ONE (00:03)
[2018-12-26] MEDS ORDERED: KETOROLAC TROMETHAMINE INJ/PF 30 MG/1 ML SDV IV ONE (00:03)
--- NOTE | 2018-12-26 00:11 | ER Document Report ---
ED General - General Chief Complaint: Headache Stated Complaint: HEADACHE Time Seen by Provider: 12/25/18 20:49 Primary Care Provider: COURTNEY ANDRADE DO [Primary Care Provider] - Follow up as needed Mode of Arrival: Ambulatory Information source: Patient TRAVEL OUTSIDE OF THE [place] 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 The patient reports transient nausea but no vomiting. She denies any neck stiffness, head injury, numbness, paresthesia. No chest pain or difficulty breathing. The patient states this is typical for a migraine and anxiety. This is not the worst headache of her life. No weight loss or fever. Patient is on no medications. She reports she previously was on Ativan 2 years ago but she stopped taking it because she was concerned about reports it would cause memory loss. The patient reports previous negative CT scan of the head related to headaches in the past. - Related Data Allergies/Adverse Reactions: No Known Allergies Allergy (Verified 09/06/18 07:35) Past Medical History - General Information source: Patient - Social History Smoking Status: Never Smoker Chew tobacco use (# tins/day): No Frequency of alcohol use: Rare Drug Abuse: None Lives with: Family Family History: Arthritis, CAD, CVA, DM, Hyperlipidemia, Hypertension Patient has suicidal ideation: No Patient has homicidal ideation: No Pulmonary Medical History: Reports: Hx Asthma, Hx Pneumonia Renal/ Medical History: Denies: Hx Peritoneal Dialysis Skin Medical History: Reports Hx Cellulitis Psychiatric Medical History: Reports: Hx Anxiety, Hx Depression Past Surgical History: Reports: Hx Adenoidectomy, Hx Section - x4, Hx CholecystectomyComment Only: Hx Tonsillectomy - adnoids - Immunizations Hx Diphtheria, Pertussis, Tetanus Vaccination: Yes Review of Systems - Review of Systems -: Yes All other systems reviewed and negative Physical Exam - Vital signs Vitals: Temp Pulse Resp BP Pulse Ox 97.9 F 142 H 18 126/84 H 93 12/25/18 19:57 12/25/18 19:57 12/25/18 19:57 12/25/18 19:57 12/25/18 19:57 - Notes Notes: PHYSICAL EXAMINATION: GENERAL: Well-appearing, well-nourished and in no acute distress. HEAD: Atraumatic, normocephalic. No temporal arterial tenderness. No TMJ joint tenderness. No sinus tenderness. EYES: Pupils equal round and reactive to light, extraocular movements intact, conjunctiva are normal. Anterior chambers are within normal limits and are not shallow. ENT: Nares patent, oropharynx clear without exudates. Moist mucous membranes. NECK: Normal range of motion, supple without lymphadenopathy. No meningismus. LUNGS: Breath sounds clear to auscultation bilaterally and equal. No wheezes rales or rhonchi. HEART: Regular rate and rhythm without murmurs ABDOMEN: Soft, nontender, nondistended abdomen. No guarding, no rebound. No masses appreciated. Female : deferred Musculoskeletal: Normal range of motion, no pitting or edema. No cyanosis. NEUROLOGICAL: Cranial nerves grossly intact. Normal speech, normal gait. Normal sensory, motor exams. No cerebellar ataxia. PSYCH: Normal mood, normal affect. SKIN: Warm, Dry, normal turgor, no rashes or lesions noted. Course - Re-evaluation Re-evalutation: 12/26/18 00:10 Patient was given IV normal saline bolus and Compazine and Benadryl and Toradol and Ativan. 12/26/18 03:10 Pt had complete relief of pain after meds. Advised long-term mgmt of anxiety with zoloft and pt counseled about risks involved. 12/26/18 03:14 - Vital Signs Vital signs: Temp Pulse Resp BP Pulse Ox 98.0 F 58 L 16 131/87 H 100 12/26/18 02:54 12/26/18 02:54 12/26/18 02:54 12/26/18 02:54 12/26/18 02:54 Discharge - Discharge Clinical Impression: Anxiety Headache Qualifiers: Headache type: other headache syndrome Qualified Code(s): G44.89 - Other headache syndrome Condition: Stable Disposition: HOME, SELF-CARE Instructions: Anxiety ([facility]), Headache ([facility]) Additional Instructions: Follow-up with regular practitioner for continuation of Zoloft. Prescriptions: Lorazepam [Ativan 1 mg Tablet] 1 mg PO Q12HP PRN #15 tablet PRN Reason: Sertraline HCl [Zoloft 50 mg Tablet] 50 mg PO DAILY #30 tablet Forms: Return to Work Referrals: CORUTNEY ANDRADE DO [Primary Care Provider] - Follow up as needed
[2018-12-26 02:55] VITALS: BP 131/87
== END 2018-12-26 03:13 | disposition home or self-care (01) ==
LOC: ER 19:53
DX: G44.89 Other headache syndrome (principal); R41.9 Unspecified symptoms and signs involving cognitive functions and awareness; Z90.49 Acquired absence of other specified parts of digestive tract
CPT/HCPCS: 99283; 96361; 96374; 96375; J3360; J1200; J1885; J0780; J7030

== ENCOUNTER 2019-01-30 14:52 | Emergency (ER) | payer OTHER ==
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
[2019-01-30 17:39] VITALS: BP 135/91
--- NOTE | 2019-01-30 23:20 | EKG REPORT ---
SEVERITY:- NORMAL ECG - SINUS RHYTHM : Confirmed by: Damaris Salgado MD 30-Jan-2019 23:19:49
== END 2019-01-30 17:40 | disposition home or self-care (01) ==
LOC: ER 14:52
DX: F41.0 Panic disorder [episodic paroxysmal anxiety] (principal); F41.9 Anxiety disorder, unspecified; Z86.59 Personal history of other mental and behavioral disorders
CPT/HCPCS: 93005; 93010; 99284

== ENCOUNTER 2019-07-14 03:06 | Emergency (ER) | payer OTHER ==
[2019-07-14] MEDS ORDERED: ACETAMINOPHEN 325 MG TABLET PO ONE (03:26)
[2019-07-14 03:56] LABS: A TYPE INFLUENZA AG NEGATIVE (NEGATIVE); B INFLUENZA AG NEGATIVE (NEGATIVE)
--- NOTE | 2019-07-14 05:01 | RADIOLOGY REPORT (SQ) ---
CLINICAL HISTORY: cough COMPARISON: 11/28/2015. TECHNIQUE: XR CHEST 2 VIEWS 07/14/2019 3:58 AM CDT FINDINGS: Cardiac silhouette is normal in size. Lungs are clear without consolidation, atelectasis, mass or edema. There is no pleural effusion. There is no pneumothorax. There are no acute osseous findings. IMPRESSION: Clear lungs.
--- NOTE | 2019-07-14 05:50 | ER Document Report ---
HPI - HPI Time Seen by Provider: 07/14/19 05:37 Pain Level: 3 Notes: Patient is a 39-year-old female with no significant past medical history presents complaining of feeling feverish, body aches, and diarrhea for the past 1 to 2 days. She is able to eat and drink no difficulty. She is urinating normally. Patient states that she is primarily here for a work note. She has not been exposed to any obvious coronavirus or persons under investigation. No new foods or recent antibiotic use. No cough. Denies any headache, neck pain, URI, sore throat, chest pain, palpitations, syncope, shortness of breath, wheeze, dyspnea, abdominal pain, nausea/vomiting, urinary retention, dysuria, hematuria, or rash. - ROS Systems Reviewed and Negative: Yes All other systems reviewed and negative - REPRODUCTIVE Reproductive: DENIES: : Past Medical History - Social History Smoking Status: Never Smoker Frequency of alcohol use: Occasional Family History: Arthritis, CAD, CVA, DM, Hyperlipidemia, Hypertension Patient has suicidal ideation: No Patient has homicidal ideation: No Pulmonary Medical History: Reports: Hx Asthma, Hx Pneumonia Renal/ Medical History: Denies: Hx Peritoneal Dialysis Skin Medical History: Reports Hx Cellulitis Psychiatric Medical History: Reports: Hx Anxiety, Hx Depression Past Surgical History: Reports: Hx Adenoidectomy, Hx Section - x4, Hx CholecystectomyComment Only: Hx Tonsillectomy - adnoids - Immunizations Hx Diphtheria, Pertussis, Tetanus Vaccination: Yes Vertical Provider Document - CONSTITUTIONAL Agree With Documented VS: Yes Notes: PHYSICAL EXAMINATION: GENERAL: Well-appearing, well-nourished and in no acute distress. A&Ox4. Answers questions appropriately. Moves comfortably w/o notable distress HEAD: Atraumatic, normocephalic. EYES: Pupils equal round and reactive to light, extraocular movements intact, sclera anicteric, conjunctiva are normal. ENT: Nares patent and without discharge. oropharynx no erythema without exudates. No tonsilar hypertrophy without erythema or exudate. No palatine shift. Uvula midline. No tongue protrusion. No drooling, hoarseness, or airway compromise. Moist mucous membranes. No sinus tenderness. NECK: Normal range of motion, supple without lymphadenopathy. No rigidity/meningismus. LUNGS: Breath sounds clear to auscultation bilaterally and equal. No wheezes rales or rhonchi. No retractions HEART: Regular rate and rhythm without murmurs, rubs, gallops. ABDOMEN: Soft, nontender, nondistended abdomen. No guarding, no rebound. Normal bowel sounds present. No CVA tenderness bilaterally. NEUROLOGICAL: Normal speech, normal gait. PSYCH: Normal mood, normal affect. SKIN: Warm, Dry, normal turgor, no rashes or lesions noted. - INFECTION CONTROL TRAVEL OUTSIDE OF THE [place] IN LAST 30 DAYS: No Course - Re-evaluation Re-evalutation: 07/14/19 05:47 Patient is an afebrile, well-hydrated, 39-year-old female who presents to the emergency department with fever/diarrhea, suspect viral syndrome. Vitals are acceptable without significant tachycardia, tachypnea, or hypoxia. PE is otherwise unremarkable. Her abd is soft and non-tender. She is nontoxic- appearing and is tolerating p.o. without difficulty. Lungs are clear to auscultation bilaterally. Influenza/CXR unremarkable. No further labs or imaging warranted at this time. Low suspicion for any meningitis, sepsis, peritonsillar/pharyngeal abscess, respiratory compromise, pneumonia, or other emergent systemic condition at this time. Patient is aware this condition can change from initial presentation and she needs to monitor symptoms closely. Conservative measures otherwise for symptoms. Recheck with your PCM in 3-5 days. Return to the ED with any worsening/concerning symptoms otherwise as reviewed in discharge. Patient is in agreement. - Vital Signs Vital signs: Temp Pulse Resp BP Pulse Ox 101.9 F H 96 16 122/79 99 07/14/19 03:25 07/14/19 03:25 07/14/19 03:25 07/14/19 03:25 07/14/19 03:25 Discharge - Discharge Clinical Impression: Viral syndrome Condition: Stable Disposition: HOME, SELF-CARE Instructions: Viral Syndrome ([facility]) Additional Instructions: Maintain adequate fluid and food intake Increase fiber/water intake tylenol/Motrin alternating every 3 hours for fever as needed Monitor for any worsening symptoms Make sure you are staying hydrated enough to urinate and have normal BM's Recheck with your PCM in 3-5 days Consider consult with Gastroenterology for ongoing/worsening symptoms Return to the ED with any worsening symptoms and/or development of fever, headache, chest pain, palpitations, syncope, shortness of breath, trouble breathing, abdominal pain, n/v/d, blood in stool/urine, weakness, or other worsening symptoms that are concerning to you. Forms: Return to Work Referrals: COURTNEY ANDRADE DO [Primary Care Provider] - Follow up as needed ESTELLA PITTMAN MD [ACTIVE STAFF] - Follow up as needed
[2019-07-14 06:04] VITALS: BP 119/82
== END 2019-07-14 06:05 | disposition home or self-care (01) ==
LOC: ER 03:06
DX: B34.9 Viral infection, unspecified (principal); R50.9 Fever, unspecified; R19.7 Diarrhea, unspecified; Z90.49 Acquired absence of other specified parts of digestive tract
CPT/HCPCS: 71046; 87804; 99283

== ENCOUNTER 2019-07-16 03:46 | Emergency (ER) | payer BC, OTHER ==
[2019-07-16] MEDS ORDERED: ACETAMINOPHEN 325 MG TABLET PO ONE (04:22)
[2019-07-16] MEDS ORDERED: HYDROCODONE/ACETAMINOPHEN 5-325 MG TABLET PO ONE (04:22)
[2019-07-16] MEDS ORDERED: NORMAL SALINE 1000 ML 1,000 ML IV ONE (04:22)
--- NOTE | 2019-07-16 04:26 | ER Document Report ---
ED Fever - General Chief Complaint: Fever Stated Complaint: BODY ACHES CHILLS Time Seen by Provider: 07/16/19 03:59 Primary Care Provider: COURTNEY ANDRADE DO [Primary Care Provider] - Follow up as needed Mode of Arrival: Ambulatory Information source: Patient Notes: Patient presents complaining of 4-day history of fever body aches chills and sore throat. Patient states that she was seen here 2 days ago when she had cough symptoms but states she has not had a cough for the past 2 days. Patient denies any nausea or vomiting. Patient does report some diarrhea. Patient complains of bilateral rib tenderness. TRAVEL OUTSIDE OF THE [place] IN LAST 30 DAYS: No - HPI Onset: Other - 4 days Onset/Duration: Persistent Quality of pain: Achy Pain Level: 4 Associated symptoms: Body/muscle aches, Diarrhea, Fever, Sore throat. denies: Chest pain, Nonproductive cough, Productive cough, Nausea, Vomiting Similar symptoms previously: Yes Recently seen / treated by doctor: Yes - Related Data Allergies/Adverse Reactions: No Known Allergies Allergy (Verified 07/16/19 04:05) Past Medical History - General Information source: Patient, Parent - Social History Smoking Status: Never Smoker Frequency of alcohol use: Occasional Drug Abuse: None Occupation: [employer] Family History: Arthritis, CAD, CVA, DM, Hyperlipidemia, Hypertension Patient has suicidal ideation: No Patient has homicidal ideation: No Pulmonary Medical History: Reports: Hx Asthma, Hx Pneumonia Renal/ Medical History: Denies: Hx Peritoneal Dialysis Skin Medical History: Reports Hx Cellulitis Psychiatric Medical History: Reports: Hx Anxiety, Hx Depression Past Surgical History: Reports: Hx Adenoidectomy, Hx Section - x4, Hx CholecystectomyComment Only: Hx Tonsillectomy - adnoids - Immunizations Hx Diphtheria, Pertussis, Tetanus Vaccination: Yes Review of Systems - Review of Systems Constitutional: Chills, Fever EENT: Nose congestion, Nose discharge, Throat pain Cardiovascular: No symptoms reported. denies: Chest pain Respiratory: Other - Lateral rib tenderness. denies: Cough, Short of breath Gastrointestinal: Diarrhea. denies: Abdominal pain, Nausea, Vomiting Genitourinary: No symptoms reported. denies: Dysuria, Flank pain Female Genitourinary: No symptoms reported. denies: , Vaginal discharge, Vaginal bleeding Musculoskeletal: No symptoms reported Skin: No symptoms reported Hematologic/Lymphatic: No symptoms reported Neurological/Psychological: No symptoms reported Physical Exam - Vital signs Vitals: Temp Pulse Resp BP Pulse Ox 99.1 F 93 16 120/78 97 07/16/19 03:50 07/16/19 03:50 07/16/19 03:50 07/16/19 03:50 07/16/19 03:50 - General General appearance: Appears well, Alert In distress: None - HEENT Head: Normocephalic, Atraumatic Eyes: Normal Conjunctiva: Normal Ears: Normal External canal: Normal Tympanic membrane: Normal Nasal: Clear rhinorrhea Mouth/Lips: Normal Mucous membranes: Normal Pharynx: Erythema. No: Peritonsillar abscess, Retropharyngeal abscess, Tonsillar hypertrophy Neck: Normal, Supple. No: Lymphadenopathy, Meningismus - Respiratory Respiratory status: No respiratory distress Chest status: Tender, Pain with deep breathing Breath sounds: Normal Chest palpation: Normal - Cardiovascular Rhythm: Regular. No: Tachycardia Heart sounds: S1 appreciated, S2 appreciated - Abdominal Inspection: Morbidly Obese Distension: No distension Bowel sounds: Normal Tenderness: Nontender Organomegaly: No organomegaly - Back Back: Normal, Nontender. No: CVA tenderness - Extremities General upper extremity: Normal inspection, Normal ROM General lower extremity: Normal inspection, Normal ROM - Neurological Neuro grossly intact: Yes Cognition: Normal Jennifer Coma Scale Eye Opening: Spontaneous Jennifer Coma Scale Verbal: Oriented Jennifer Coma Scale Motor: Obeys Commands Jennifer Coma Scale Total: 15 - Psychological Associated symptoms: Normal affect, Normal mood - Skin Skin Temperature: Warm Skin Moisture: Dry Skin Color: Normal Course - Re-evaluation Re-evalutation: 07/16/19 07:39 Patient without any acute findings on diagnostic evaluation. Patient with negative rapid strep, influenza and mono testing. Chest x-ray reviewed, no pneumonia or pneumothorax noted. Patient is currently on her menstrual cycle and does have some mild hematuria. Patient denies any urinary symptoms. Patient reports fever at home but denies any cough or shortness of breath. Patient was given a handout with the one 800-number to call for screening for Covid 19 testing. Patient did have incidental mild elevation of liver function test. Patient was encouraged to recheck with her primary doctor to have this further evaluated. Patient with stable vital signs and is nontoxic in appearance. Patient appears stable for discharge at this time. - Vital Signs Vital signs: Temp Pulse Resp BP Pulse Ox 98.3 F 72 20 112/75 98 07/16/19 07:01 07/16/19 07:01 07/16/19 07:01 07/16/19 07:01 07/16/19 07:01 - Laboratory Result Diagrams: 07/16/19 04:50 07/16/19 04:50 Laboratory results interpreted by me: 07/16/19 07/16/19 04:50 06:12 Sodium 136.8 L AST 45 H ALT 53 H Urine Protein 30 H Urine Blood LARGE H Labs- Entire Visit 07/16/19 07/16/19 07/16/19 04:39 04:39 04:50 WBC 5.6 RBC 4.52 Hgb 13.7 Hct 40.8 MCV 90 MCH 30.4 MCHC 33.7 RDW 12.7 Plt Count 192 Lymph % (Auto) 37.4 Falls % (Auto) 7.6 Eos % (Auto) 0.0 Baso % (Auto) 0.6 Absolute Neuts (auto) 3.0 Absolute Lymphs (auto) 2.1 Absolute Monos (auto) 0.4 Absolute Eos (auto) 0.0 Absolute Basos (auto) 0.0 Seg Neutrophils % 54.4 Sodium Potassium Chloride Carbon Dioxide Anion Gap BUN Creatinine Est GFR ( Amer) Est GFR (MDRD) Non-Af Glucose Calcium Total Bilirubin Direct Bilirubin Neonat Total Bilirubin Neonat Direct Bilirubin Neonat Indirect Bili AST ALT Alkaline Phosphatase Total Protein Albumin Lipase Serum HCG, Qual Urine Color Urine Appearance Urine pH Ur Specific Bailey Urine Protein Urine Glucose (UA) Urine Ketones Urine Blood Urine Nitrite Urine Bilirubin Urine Urobilinogen Ur Leukocyte Esterase Urine WBC (Auto) Urine RBC (Auto) Urine Bacteria (Auto) Squamous Epi Cells Auto Urine Mucus (Auto) Urine Ascorbic Acid Monotest Influenza A (Rapid) NEGATIVE Influenza B (Rapid) NEGATIVE Group A Strep Rapid NEGATIVE 07/16/19 07/16/19 07/16/19 04:50 04:50 04:50 WBC RBC Hgb Hct MCV MCH MCHC RDW Plt Count Lymph % (Auto) Falls % (Auto) Eos % (Auto) Baso % (Auto) Absolute Neuts (auto) Absolute Lymphs (auto) Absolute Monos (auto) Absolute Eos (auto) Absolute Basos (auto) Seg Neutrophils % Sodium 136.8 L Potassium 4.4 Chloride 101 Carbon Dioxide 25 Anion Gap 11 BUN 8 Creatinine 0.68 Est GFR ( Amer) > 60 Est GFR (MDRD) Non-Af > 60 Glucose 89 Calcium 8.7 Total Bilirubin 0.4 Direct Bilirubin 0.3 Neonat Total Bilirubin Not Reportable Neonat Direct Bilirubin Not Reportable Neonat Indirect Bili Not Reportable AST 45 H ALT 53 H Alkaline Phosphatase 85 Total Protein 7.8 Albumin 4.1 Lipase 66.2 Serum HCG, Qual NEGATIVE Urine Color Urine Appearance Urine pH Ur Specific Bailey Urine Protein Urine Glucose (UA) Urine Ketones Urine Blood Urine Nitrite Urine Bilirubin Urine Urobilinogen Ur Leukocyte Esterase Urine WBC (Auto) Urine RBC (Auto) Urine Bacteria (Auto) Squamous Epi Cells Auto Urine Mucus (Auto) Urine Ascorbic Acid Monotest NEGATIVE Influenza A (Rapid) Influenza B (Rapid) Group A Strep Rapid 07/16/19 06:12 WBC RBC Hgb Hct MCV MCH MCHC RDW Plt Count Lymph % (Auto) Falls % (Auto) Eos % (Auto) Baso % (Auto) Absolute Neuts (auto) Absolute Lymphs (auto) Absolute Monos (auto) Absolute Eos (auto) Absolute Basos (auto) Seg Neutrophils % Sodium Potassium Chloride Carbon Dioxide Anion Gap BUN Creatinine Est GFR ( Amer) Est GFR (MDRD) Non-Af Glucose Calcium Total Bilirubin Direct Bilirubin Neonat Total Bilirubin Neonat Direct Bilirubin Neonat Indirect Bili AST ALT Alkaline Phosphatase Total Protein Albumin Lipase Serum HCG, Qual Urine Color DEIDRA Urine Appearance CLOUDY Urine pH 6.0 Ur Specific Bailey 1.024 Urine Protein 30 H Urine Glucose (UA) NEGATIVE Urine Ketones NEGATIVE Urine Blood LARGE H Urine Nitrite NEGATIVE Urine Bilirubin NEGATIVE Urine Urobilinogen NEGATIVE Ur Leukocyte Esterase NEGATIVE Urine WBC (Auto) 9 Urine RBC (Auto) 5 Urine Bacteria (Auto) TRACE Squamous Epi Cells Auto 30 Urine Mucus (Auto) MODERATE Urine Ascorbic Acid NEGATIVE Monotest Influenza A (Rapid) Influenza B (Rapid) Group A Strep Rapid - Diagnostic Test Radiology reviewed: Image reviewed, Reports reviewed Discharge - Discharge Clinical Impression: Sore throat, Myalgia, Viral syndrome Diarrhea Qualifiers: Diarrhea type: unspecified type Qualified Code(s): R19.7 - Diarrhea, unspecified Condition: Stable Disposition: HOME, SELF-CARE Instructions: Viral Syndrome ([facility]), Acetaminophen, Fever ([facility]), Sore Throat ([facility]), Diarrhea, Nonspecific ([facility]) Additional Instructions: Return immediately for any new or worsening symptoms Followup with your primary care provider, call tomorrow to make a followup appointment Call the [facility] [employer] Helpline for instructions and next steps. Your liver function tests were mildly elevated today. Your primary doctor can repeat this test for you. Prescriptions: Naproxen [Naprosyn 250 Nmg Tablet] 1 tab PO BID #14 tablet Forms: Return to Work Referrals: COURTNEY ANDRADE, [Primary Care Provider] - Follow up tomorrow
[2019-07-16 05:03] LABS: A TYPE INFLUENZA AG NEGATIVE (NEGATIVE); B INFLUENZA AG NEGATIVE (NEGATIVE)
[2019-07-16 05:09] LABS: ABSOLUTE LYMPHOCYTES (AUTO) 2.1 10^3/uL (0.5-4.7); ABSOLUTE MONOCYTES (AUTO) 0.4 10^3/uL (0.1-1.4); BASOPHILS % (AUTO) 0.6 % (0-2); HEMATOCRIT 40.8 % (36.0-47.0); HEMOGLOBIN 13.7 g/dL (12.0-15.5); LYMPHOCYTES % (AUTO) 37.4 % (13-45); MEAN CORPUSCULAR HEMOGLOBIN 30.4 pg (27.0-33.4); MEAN CORPUSCULAR HGB CONC 33.7 g/dL (32.0-36.0); MEAN CORPUSCULAR VOLUME 90 fl (80-97); MONOCYTES % (AUTO) 7.6 % (3-13); PLATELET COUNT 192 10^3/uL (150-450); RED BLOOD COUNT 4.52 10^6/uL (3.72-5.28); RED CELL DISTRIBUTION WIDTH 12.7 % (11.5-14.0); SEGMENTED NEUTROPHILS % (AUTO) 54.4 % (42-78); TOTAL CELLS COUNTED % (AUTO) 100 %; WHITE BLOOD COUNT 5.6 10^3/uL (4.0-10.5)
[2019-07-16 05:34] LABS: ALBUMIN 4.1 g/dL (3.5-5.0); ALKALINE PHOSPHATASE 85 U/L (38-126); ANION GAP 11 (5-19); ASPARTATE AMINO TRANSFERASE 45 U/L (14-36); BILIRUBIN,DIRECT 0.3 mg/dL (0.0-0.4); BILIRUBIN,TOTAL 0.4 mg/dL (0.2-1.3); BLOOD UREA NITROGEN 8 mg/dL (7-20); CALCIUM 8.7 mg/dL (8.4-10.2); CARBON DIOXIDE 25 mmol/L (22-30); CHLORIDE 101 mmol/L (98-107); GLUCOSE 89 mg/dL (75-110); POTASSIUM 4.4 mmol/L (3.6-5.0); TOTAL PROTEIN 7.8 g/dL (6.3-8.2)
--- NOTE | 2019-07-16 06:11 | RADIOLOGY REPORT (SQ) ---
EXAM DESCRIPTION: XR CHEST 2 VIEWS COMPLETED DATE/TME: 07/16/2019 04:22 CLINICAL HISTORY: rib pain COMPARISON: 11/28/2015 FINDINGS: Frontal and lateral views of the chest. Cardiomediastinal silhouette: Normal size and contour. Lungs: No consolidation, pneumothorax, or pleural effusion. Bones: No acute osseous abnormality. Upper abdomen: Cholecystectomy. IMPRESSION: 1. No acute pulmonary process identified.
[2019-07-16 07:03] LABS: APPEARANCE,URINE CLOUDY; BILIRUBIN,URINE NEGATIVE (NEGATIVE); COLOR,URINE AMBER; GLUCOSE, URINE NEGATIVE (NEGATIVE); KETONES,URINE NEGATIVE (NEGATIVE); URINE SPECIFIC GRAVITY 1.024
[2019-07-16 07:04] LABS: LEUKOCYTE ESTERASE,URINE NEGATIVE (NEGATIVE); NITRITE,URINE NEGATIVE (NEGATIVE); PROTEIN,URINE 30 mg/dL (NEGATIVE); UROBILINOGEN,URINE NEGATIVE mg/dL (<2.0)
[2019-07-16 08:20] VITALS: BP 109/71
== END 2019-07-16 08:19 | disposition home or self-care (01) ==
LOC: ER 03:46
DX: B34.9 Viral infection, unspecified (principal); R50.9 Fever, unspecified; R79.89 Other specified abnormal findings of blood chemistry; J02.9 Acute pharyngitis, unspecified; R19.7 Diarrhea, unspecified; M79.10 Myalgia, unspecified site; J45.909 Unspecified asthma, uncomplicated; R09.81 Nasal congestion; J34.89 Other specified disorders of nose and nasal sinuses; R07.1 Chest pain on breathing; R31.9 Hematuria, unspecified; Z87.01 Personal history of pneumonia (recurrent)
CPT/HCPCS: 99283; 96360; 36415; 87040; 87070; 87880; 83690; 84703; 85025; 86308; 80053; 81001; 87804; 71046; J7030

== ENCOUNTER 2019-08-07 05:20 | Emergency (ER) | payer OTHER ==
[2019-08-07] MEDS ORDERED: NORMAL SALINE 1000 ML 1,000 ML IV ONE (05:30)
[2019-08-07] MEDS ORDERED: ONDANSETRON HCL INJ/PF 4 MG/2 ML SDV IV ONE (05:30)
[2019-08-07] MEDS ORDERED: ACETAMINOPHEN 325 MG TABLET PO ONE (06:37)
[2019-08-07 07:46] LABS: APPEARANCE,URINE SLIGHTLY-CLOUDY; BILIRUBIN,URINE NEGATIVE (NEGATIVE); COLOR,URINE YELLOW; GLUCOSE, URINE NEGATIVE (NEGATIVE); KETONES,URINE NEGATIVE (NEGATIVE); LEUKOCYTE ESTERASE,URINE NEGATIVE (NEGATIVE); NITRITE,URINE NEGATIVE (NEGATIVE); PROTEIN,URINE 30 mg/dL (NEGATIVE); URINE SPECIFIC GRAVITY 1.025; UROBILINOGEN,URINE NEGATIVE mg/dL (<2.0)
--- NOTE | 2019-08-07 09:02 | ER Document Report ---
Entered by TOY FARAH SCRIBE 08/07/19 0628 Acting as scribe for:EDER EL DO ED GI/ - General Chief Complaint: Fever Stated Complaint: NAUSEA, VOMITING Time Seen by Provider: 08/07/19 06:01 Primary Care Provider: COURTNEY ANDRADE DO [Primary Care Provider] - Follow up as needed Mode of Arrival: Ambulatory Information source: Patient Notes: This 39 year old female patient presents to the emergency department today with complaints of a one week history of generalized myalgias, left ear pain, and a fever for the last two days. Patient states she had similar symptoms at the end of June which responded to Augmentin. Patient was tested for COVID-19 at that time which came back negative. Patient denies nausea, vomiting, or recent travel. TRAVEL OUTSIDE OF THE [place] IN LAST 30 DAYS: No - Related Data Allergies/Adverse Reactions: No Known Allergies Allergy (Verified 07/16/19 04:05) Past Medical History - General Information source: Patient - Social History Smoking Status: Never Smoker Cigarette use (# per day): No Frequency of alcohol use: None Drug Abuse: None Lives with: Family Family History: Reviewed & Not Pertinent, Arthritis, CAD, CVA, DM, Hyperlipidemia, Hypertension Patient has suicidal ideation: No Patient has homicidal ideation: No Pulmonary Medical History: Reports: Hx Asthma, Hx Pneumonia Skin Medical History: Reports Hx Cellulitis Psychiatric Medical History: Reports: Hx Anxiety, Hx Depression Past Surgical History: Reports: Hx Adenoidectomy, Hx Section - x4, Hx CholecystectomyComment Only: Hx Tonsillectomy - adnoids - Immunizations Hx Diphtheria, Pertussis, Tetanus Vaccination: Yes Review of Systems - Review of Systems Constitutional: See HPI, Fever EENT: See HPI, Ear pain Cardiovascular: No symptoms reported Respiratory: No symptoms reported Gastrointestinal: denies: Nausea, Vomiting Genitourinary: No symptoms reported Female Genitourinary: No symptoms reported Musculoskeletal: See HPI, Muscle pain Skin: No symptoms reported Hematologic/Lymphatic: No symptoms reported Neurological/Psychological: No symptoms reported -: Yes All other systems reviewed and negative Physical Exam - Vital signs Vitals: Temp Pulse Resp BP Pulse Ox 102.5 F H 102 H 20 123/80 97 08/07/19 05:31 08/07/19 05:31 08/07/19 05:31 08/07/19 05:31 08/07/19 05:31 - Notes Notes: Physical Exam: General: Alert, appears well. HEENT: Normocephalic. Atraumatic. PERRL. Extraocular movements intact. No posterior oropharynx erythema or exudate, airway is patent. TMs are clear and non-bulging bilaterally. Mildly dry mucous membranes. Neck: Supple. Non-tender. Respiratory: No respiratory distress. Clear and equal breath sounds bilaterally. Cardiovascular: Regular rate and rhythm. Abdominal: Morbidly obese. Non-tender. No distension. Normal Bowel Sounds. Back: No gross abnormalities. Extremities: Moves all four extremities. Upper extremities: Normal inspection. Normal ROM. Lower extremities: Normal inspection. No edema. Normal ROM. Neurological: Normal cognition. AAOx4. Normal speech. Psychological: Normal affect. Normal Mood. Skin: Warm. Dry. Normal color. Course - Vital Signs Vital signs: Temp Pulse Resp BP Pulse Ox 98.4 F 74 18 118/71 97 08/07/19 11:05 08/07/19 11:05 08/07/19 11:05 08/07/19 11:05 08/07/19 11:05 - Laboratory Result Diagrams: 08/07/19 10:00 08/07/19 10:00 Laboratory results interpreted by me: 08/07/19 08/07/19 07:30 10:00 Sodium 132.0 L AST 47 H ALT 48 H Total Protein 8.4 H Urine Protein 30 H Urine Blood MODERATE H Discharge - Discharge Clinical Impression: Acute febrile illness Condition: Good Disposition: HOME, SELF-CARE Instructions: Acetaminophen, Fever ([facility]) Additional Instructions: Take the medicine as directed. Tylenol for fever. Finish the antibiotic. Please return here for any problems or concerns including, but not limited to chest pain, shortness of breath or other concerns. Prescriptions: Amoxicillin/Potassium Clav [Amox-Clav 875-125 mg Tablet] 1 each PO BID #20 tablet Referrals: COURTNEY ANDRADE DO [Primary Care Provider] - Follow up as needed I personally performed the services described in the documentation, reviewed and edited the documentation which was dictated to the scribe in my presence, and it accurately records my words and actions.
[2019-08-07] MEDS ORDERED: ONDANSETRON HCL INJ/PF 4 MG/2 ML SDV ONE (10:05)
[2019-08-07 10:20] LABS: ABSOLUTE LYMPHOCYTES (AUTO) 1.6 10^3/uL (0.5-4.7); ABSOLUTE MONOCYTES (AUTO) 0.5 10^3/uL (0.1-1.4); ABSOLUTE NEUT (AUTO) 2.9 10^3/uL (1.7-8.2); BASOPHILS % (AUTO) 0.3 % (0-2); HEMATOCRIT 39.7 % (36.0-47.0); HEMOGLOBIN 13.5 g/dL (12.0-15.5); LYMPHOCYTES % (AUTO) 32.4 % (13-45); MEAN CORPUSCULAR HEMOGLOBIN 30.2 pg (27.0-33.4); MEAN CORPUSCULAR HGB CONC 33.9 g/dL (32.0-36.0); MEAN CORPUSCULAR VOLUME 89 fl (80-97); PLATELET COUNT 156 10^3/uL (150-450); RED BLOOD COUNT 4.46 10^6/uL (3.72-5.28); RED CELL DISTRIBUTION WIDTH 13.1 % (11.5-14.0); SEGMENTED NEUTROPHILS % (AUTO) 58.3 % (42-78); TOTAL CELLS COUNTED % (AUTO) 100 %
[2019-08-07 10:51] LABS: ALBUMIN 4.6 g/dL (3.5-5.0); ALKALINE PHOSPHATASE 88 U/L (38-126); ANION GAP 8 (5-19); ASPARTATE AMINO TRANSFERASE 47 U/L (14-36); BILIRUBIN,TOTAL 0.5 mg/dL (0.2-1.3); BLOOD UREA NITROGEN 9 mg/dL (7-20); CALCIUM 9.3 mg/dL (8.4-10.2); CARBON DIOXIDE 26 mmol/L (22-30); CHLORIDE 98 mmol/L (98-107); GLUCOSE 96 mg/dL (75-110); TOTAL PROTEIN 8.4 g/dL (6.3-8.2)
[2019-08-07 11:10] VITALS: BP 118/71
--- NOTE | 2019-08-07 13:25 | RADIOLOGY REPORT (SQ) ---
EXAM DESCRIPTION: CHEST SINGLE VIEW IMAGES COMPLETED DATE/TIME: 08/07/2019 1:12 pm REASON FOR STUDY: fever COMPARISON: 07/16/2019. EXAM PARAMETERS: NUMBER OF VIEWS: One view. TECHNIQUE: Single frontal radiographic view of the chest acquired. RADIATION DOSE: NA LIMITATIONS: None. FINDINGS: LUNGS AND PLEURA: No opacities, masses or pneumothorax. No pleural effusion. MEDIASTINUM AND HILAR STRUCTURES: No masses. Contour normal. HEART AND VASCULAR STRUCTURES: Heart normal in size. Normal vasculature. BONES: No acute findings. HARDWARE: None in the chest. OTHER: No other significant finding. IMPRESSION: NO ACUTE RADIOGRAPHIC FINDING IN THE CHEST. TECHNICAL DOCUMENTATION: JOB ID: [id number] 2010 [employer]- All Rights Reserved Reading location - IP/workstation name: [email or web address]
== END 2019-08-07 13:26 | disposition home or self-care (01) ==
LOC: ER 05:20
DX: R50.9 Fever, unspecified (principal); M79.10 Myalgia, unspecified site; H92.02 Otalgia, left ear
CPT/HCPCS: 99283; 96360; 36415; 87070; 87880; 83690; 85025; 81025; 80053; 81001; 71045; J7030

== ENCOUNTER 2020-04-21 14:31 | Emergency (ER) | payer OTHER, BC ==
[2020-04-21 14:37] VITALS: BP 124/66
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
[2020-04-21] MEDS ORDERED: KETOROLAC TROMETHAMINE 60 MG/2 ML SDV IM ONE (15:07)
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
== END 2020-04-21 16:33 | disposition home or self-care (01) ==
LOC: ER 14:31
DX: S16.1XXA Strain of muscle, fascia and tendon at neck level, initial encounter (principal); S20.212A Contusion of left front wall of thorax, initial encounter; R51.9 Headache, unspecified; V43.52XA Car driver injured in collision with other type car in traffic accident, initial encounter
CPT/HCPCS: 99284; 96372; 72050; 71046; 73030; J1885